=== PATIENT | female | born 1955 | race Two or more races ===

== ENCOUNTER 2018-10-16 12:46 | Emergency (ER) | payer OTHER ==
[~2018-10-16] VITALS: Ht 160 cm; Wt 56.7 kg
--- NOTE | 2018-10-16 13:00 | NUR ---
PATIENT BROUGHT IN CALLED BY FOR INCREASED LETHARGY S/P TAKING ATIVAN, ZYPREXA, AND GABAPENTIN. PATIENT A/OX3 AROUSABLE TO LIGHT TOUCH. ALL EXTREMITIES EQUAL IN STRENTH. IV LEFT AC#20 PRESENT ON ARRIVAL. BS CHECKED AND WNL.
[2018-10-16] MEDS ORDERED: IV NS 0.9% 1,000 ML BAG IV ONE (13:30)
[2018-10-16 13:37] LABS: BASOPHILS % (AUTO) 0.4 % (0.0-2.0); EOSINOPHILS % (AUTO) 0.4 % (0.0-6.0); HEMATOCRIT 44 % (33-45); HEMOGLOBIN 14.7 g/dL (11.5-14.8); LYMPHOCYTES % (AUTO) 27.3 % (20.0-44.0); MEAN CORPUSCULAR HGB CONC 34 g/dl (31.0-36.0); MEAN CORPUSCULAR VOLUME 88 fL (82-100); MONOCYTES # (AUTO) 0.5 /CMM (0.1-1.30); MONOCYTES % (AUTO) 6.8 % (2.0-12.0); NEUTROPHILS # (AUTO) 4.7 /CMM (1.8-8.9); NEUTROPHILS % (AUTO) 65.1 % (43.0-81.0); PLATELET COUNT (AUTO) 331 /CMM (150-450); RED BLOOD CELL COUNT(AUTO) 4.96 MIL/uL (4.0-5.2); WHITE BLOOD COUNT (AUTO) 7.2 K/uL (4.3-11.0)
[2018-10-16 13:58] LABS: ALANINE AMINOTRANSFERASE 33 U/L (12-78); ALBUMIN 3.6 g/dL (3.4-5.0); ALCOHOL, BLOOD < 3 mg/dL (0-0); ALKALINE PHOSPHATASE 97 U/L (46-116); ASPARTATE AMINOTRANSFERASE 17 U/L (15-37); BILIRUBIN,DIRECT 0.1 mg/dL (0.0-0.2); BILIRUBIN,TOTAL 0.3 mg/dL (0.2-1.0); TOTAL PROTEIN, SERUM 7.9 g/dL (6.4-8.2)
[2018-10-16 14:22] LABS: THYROID STIMULATING HORMONE 3.253 uIU/mL (0.358-3.74)
--- NOTE | 2018-10-16 15:45 | NUR ---
IV removed. Catheter intact and site benign. Pressure and 4x4 applied to site. No bleeding noted.Patient discharged to home in stable condition. Written and verbal after care instructions given. Patient verbalizes understanding of instruction. drove pt home, ambulated w/ out difficulty
[2018-10-16 16:02] VITALS: BP 145/82
== END 2018-10-16 16:04 | disposition home or self-care (01) ==
LOC: ER 12:53
DX: T43.591A Poisoning by other antipsychotics and neuroleptics, accidental (unintentional), initial encounter (principal); F32.9 Major depressive disorder, single episode, unspecified; Y92.89 Other specified places as the place of occurrence of the external cause
CPT/HCPCS: 36415; 70450; 80076; 80307; 82962; 84443; 84484; 85025; 96360; 99284; A4606; J7030; Z7610; G0480